=== PATIENT | female | born 2000 | race Caucasian/White ===

== ENCOUNTER 2020-08-16 18:45 | Inpatient (IN) ==
[2020-08-16 22:31] LABS: Adenovirus Not Detected (Not Detect); Bordetella Pertussis Not Detected (Not Detect); Chlamydophila pneumoniae Not Detected (Not Detect); Coronavirus 229E Not Detected (Not Detect); Coronavirus HKU1 Not Detected (Not Detect); Coronavirus NL63 Not Detected (Not Detect); Coronavirus OC43 Not Detected (Not Detect); Human Metapneumovirus Not Detected (Not Detect); Human Rhinovirus/Enterovirus Not Detected (Not Detect); Influenza A Subtype 2009 H1 Not Detected (Not Detect); Influenza B Not Detected (Not Detect); Mycoplasma pneumoniae Not Detected (Not Detect); Parainfluenza Virus 1 Not Detected (Not Detect); Parainfluenza Virus 2 Not Detected (Not Detect); Parainfluenza Virus 3 Not Detected (Not Detect); Parainfluenza Virus 4 Not Detected (Not Detect); Respiratory Syncytial Virus Not Detected (Not Detect); SARS-CoV-2 Not Detected (Not Detect)
[2020-08-16] MEDS ORDERED: *HR* LORazepam 2 MG/ML VIAL IM PRN (22:40)
[2020-08-16] MEDS ORDERED: traZODone 50 MG TABLET PO PRN (22:40)
[2020-08-16] MEDS ORDERED: *HR* LORazepam 1 MG TABLET PO PRN (22:40)
[2020-08-16] MEDS ORDERED: haloperidoL 5 MG TABLET PO PRN (22:40)
[2020-08-16] MEDS ORDERED: Haloperidol Lactate 5 MG/ML VIAL IM PRN (22:40)
[2020-08-16] MEDS: hydrOXYzine pamoate 25 MG CAPSULE PO PRN (23:47)
[2020-08-16] MEDS: Nicotine 2 MG GUM BC PRN (23:47)
[2020-08-17] MEDS ORDERED: Mag Hydrox/Al Hydrox/Simeth 30 ML UDC PO PRN (08:08)
[2020-08-17] MEDS ORDERED: MOM Conc 10 ML UD.LIQ PO PRN (08:08)
[2020-08-17] MEDS: Nicotine 2 MG GUM BC PRN (10:15)
[2020-08-17] MEDS: hydrOXYzine pamoate 25 MG CAPSULE PO PRN (12:36)
[2020-08-17] MEDS: Baclofen 10 MG TABLET PO PRN (15:34)
[2020-08-17] MEDS: cloNIDine HCL 0.1 MG TABLET PO PRN (15:34)
[2020-08-18] MEDS: Acetaminophen 325 MG TABLET PO PRN ×2 (01:51→15:24)
[2020-08-18] MEDS: cloNIDine HCL 0.1 MG TABLET PO PRN ×3 (01:51→18:37)
[2020-08-18] MEDS: hydrOXYzine pamoate 25 MG CAPSULE PO PRN ×2 (01:51→18:36)
[2020-08-18] MEDS: Baclofen 10 MG TABLET PO PRN ×3 (01:51→18:35)
[2020-08-18] MEDS: Nicotine 2 MG GUM BC PRN ×2 (11:45→18:38)
[2020-08-19] MEDS: Baclofen 10 MG TABLET PO PRN (09:17)
[2020-08-19] MEDS: cloNIDine HCL 0.1 MG TABLET PO PRN (09:17)
[2020-08-19 10:25] VITALS: BP 86/68
== END 2020-08-19 12:45 | disposition home or self-care (01) | DRG 817 ==
LOC: EMEROOARM 18:45 → 1ANU 22:39
PROVIDERS: ADMIT Psychiatry & Neurology Psychiatry; ATTEND Psychiatry & Neurology Psychiatry